=== PATIENT | male | born 2000 | race Hispanic/Latino ===

== ENCOUNTER 2021-05-01 11:35 | Emergency (ER) | payer BC, SELFPAY ==
[2021-05-01] VITALS (9 sets, daily range): BP systolic 122–133; BP diastolic 74–84; PULSE 65–92; RESP 12–19; TEMP 36.8; O2SAT 97–100
--- NOTE | ~2021-05-01 | XR_ITS ---
XR chest 2V DATE: 05/01/2021 12:07 INDICATION: Midsternal chest pain, discomfort TECHNIQUE: PA and lateral views COMPARISON: None FINDINGS: Normal heart size. No hilar or mediastinal enlargement. No pulmonary infiltrate or consolid ation, pleural effusion or pulmonary vascular congestion or pneumothorax. Included skeletal structures are unremarkable. IMPRESSION: No active cardiopulmonary disease Reviewed, dictated and finalized at location B. [employer]
--- NOTE | 2021-05-01 11:54 | ECG_ITS ---
Measurements Intervals Harvest Rate: 71 P: -42 ND: 144 QRS: 94 QRSD: 106 T: 42 QT: 357 QTc: 389 Interpretive Statements SINUS RHYTHM RIGHT AXIS DEVIATION INCOMPLETE RIGHT BUNDLE BRANCH BLOCK BORDERLINE ECG Electronically Signed On 05-01-2021 12:08:19 [employer] by Darrius Girard D.O.
--- NOTE | 2021-05-01 11:55 | PC.NURSE ---
Labs obtained and sent to lab for processing.
[2021-05-01 12:07] LABS: Basophils Absolute Auto 0.1 K/mm3 (0.0-0.1); Basophils Percent Auto 0.9 % (0.2-1.2); Eosinophils Percent Auto 0.3 % (0-4.4); Hematocrit 44.5 % (42.0-52.0); Immature Granulocyte Absolute 0.02 K/mm3 (0.00-0.031); Immature Granulocyte Percent A 0.3 % (0-0.5); Lymphocytes Absolute Auto 1.94 K/mm3 (0.9-3.2); Lymphocytes Percent Auto 33.7 % (18.3-44.2); Mean Corpuscular HGB Conc 33.7 g/dl (32-36); Mean Corpuscular Hemoglobin 29.3 pg (26-34); Mean Corpuscular Volume 86.9 fl (80-100); Mean Platelet Volume 10.8 fl (7.4-10.4); Monocytes Absolute Auto 0.6 K/mm3 (0.1-0.6); Monocytes Percent Auto 9.5 % (2.6-8.5); Neutrophils Absolute Auto 3.2 K/mm3 (1.3-6.7); Neutrophils Percent Auto 55.3 % (45.5-73.1); Platelet Count Result 203 k/mm3 (150-375); Red Blood Count 5.12 M/mm3 (4.6-6.20); Red Cell Distribution Width 12.8 % (11.5-14.5); White Blood Count 5.8 K/mm3 (4.5-10.0)
[2021-05-01 12:17] LABS: INR 1.1; Prothrombin Time 13.8 Seconds (11.1-14.7)
[2021-05-01 12:18] LABS: Partial Thromboplastin Time 30.3 SECONDS (22.3-36.8)
[2021-05-01 12:20] LABS: Alanine Aminotransferase 12 U/L (4-50); Albumin Level 4.7 g/dL (3.5-5.1); Alkaline Phosphatase 70 U/L (38-126); Anion Gap 10 mmol/L (8-16); Aspartate Amino Transferase 22 U/L (17-59); Bilirubin,Total 1.8 mg/dL (0.2-1.3); Blood Urea Nitrogen 11 mg/dL (9-20); Calcium 9.3 mg/dL (8.4-10.2); Carbon Dioxide 27 mmol/L (22-30); Chloride 102 mmol/L (98-107); Estimated CRCL calculation 96 ml/min; Estimated Glomerular Filt Rate > 60; Glucose 103 mg/dL (65-110); Lipase 44 U/L (23-300); Potassium 4.2 mmol/L (3.4-5.0); Sodium 139 mmol/L (137-145)
--- NOTE | 2021-05-01 12:27 | PC.NURSE ---
Dr. Jolly at bedside to see patient.
[2021-05-01 12:32] LABS: Troponin I < 0.012 ng/mL (0.000-0.034)
--- NOTE | 2021-05-01 12:34 | ED.CHESTPAIN ---
HPI - Chest Pain General Chief Complaint: Chest Pain Stated Complaint: chest pain/sob Time Seen by Provider: 05/01/21 12:11 Source: patient and RN notes reviewed Mode of arrival: ambulatory Limitations: no limitations History of Present Illness HPI narrative: 21-year-old male with no significant past medical history presents to the emergency department for evaluation of left-sided chest pain which he states has been intermittent over the last 3 days. Patient states he does have some exertional and shortness of breath at rest. Patient states he does have a left-sided chest pressure. Patient denies any radiation of this chest pain. Patient also does report fatigue. Related Data Home Medications Medication Instructions Recorded Confirmed No Home Medications 05/01/21 05/01/21 Allergies Allergy/AdvReac Type Severity Reaction Status Date / Time No Known Allergies Allergy Verified 05/01/21 11:48 Review of Systems Review of Systems: CONSTITUTIONAL: Denies fever, chills, or sweats. EYES: Denies visual changes, redness, or discharge. ENT: Denies rhinorrhea, congestion, sore throat, or otalgia. CARDIOVASCULAR: Denies chest pain, palpitations, or edema. RESPIRATORY: Denies cough or dyspnea. GASTROINTESTINAL: Denies abdominal pain, nausea, vomiting, or diarrhea. GENITOURINARY: Denies dysuria or hematuria. SKIN: Denies rash or itching. MUSCULOSKELETAL: Denies back pain, joint pain, or myalgia. NEUROLOGIC: Denies headache, numbness, or weakness. PSYCHIATRIC: Denies anxiety or depression. Exam Narrative: APPEARANCE: Well appearing, no pain, no distress, well-nourished. HEAD: normocephalic, atraumatic. EYES: PERRLA/EOMI, conjunctivae clear. NECK: Supple. No adenopathy, no masses. RESPIRATORY: Airway patent, respirations nonlabored. Clear to auscultation bilaterally, no rales, rhonchi, wheezing. CARDIOVASCULAR: Regular rate and rhythm without murmurs rubs or gallops. ABDOMINAL: Soft, nontender, nondistended, normal bowel sounds MUSCULOSKELETAL: Moves all extremities. Strength/ROM intact, No edema, No calf tenderness. NEURO: Alert. Cranial nerves II through XII intact. SKIN: Warm, dry. Normal Color PSYCHIATRIC: Normal affect/mood. Course Course Emergency Course: Patient had negative serial troponins. Patient's EKG showed normal sinus rhythm with no ST changes. Chest x-ray showed no acute cardiopulmonary normality. Patient was updated the results of his work-up. All questions concerns were addressed. Patient was stable at time of discharge from the emergency room. Vital Signs Vital signs: Vital Signs Temperature 98.2 F 05/01/21 11:42 Pulse Rate 74 05/01/21 11:42 Respiratory Rate 16 05/01/21 11:42 Blood Pressure 130/84 05/01/21 11:42 Pulse Oximetry 98 05/01/21 11:42 Temperature 98.2 F 05/01/21 11:42 Pulse Rate 92 05/01/21 15:24 Respiratory Rate 16 05/01/21 15:24 Blood Pressure 122/74 05/01/21 15:24 Pulse Oximetry 99 05/01/21 15:24 MDM - Chest Pain Lab Data Attestation: I reviewed the patient's lab results. Result diagrams: 05/01/21 11:56 05/01/21 11:56 Labs: Lab Results 05/01/21 05/01/21 05/01/21 Range/Units 11:56 11:56 11:56 WBC 5.8 (4.5-10.0) K/mm3 RBC 5.12 (4.6-6.20) M/mm3 Hgb 15.0 (14.0-18.0) g/dL Hct 44.5 (42.0-52.0) % MCV 86.9 (80-100) fl MCH 29.3 (26-34) pg MCHC 33.7 (32-36) g/dl RDW 12.8 (11.5-14.5) % Plt Count 203 (150-375) k/mm3 MPV 10.8 H (7.4-10.4) fl Immature Gran % (Auto) 0.3 (0-0.5) % Neut % (Auto) 55.3 (45.5-73.1) % Lymph % (Auto) 33.7 (18.3-44.2) % [place] % (Auto) 9.5 H (2.6-8.5) % Eos % (Auto) 0.3 (0-4.4) % Baso % (Auto) 0.9 (0.2-1.2) % Lymph # (Auto) 1.94 (0.9-3.2) K/mm3 [place] # (Auto) 0.6 (0.1-0.6) K/mm3 Eos # (Auto) 0.0 (0-0.3) K/mm3 Baso # (Auto) 0.1 (0.0-0.1) K/mm3 Abs Immat Gran (auto) 0.02 (0.00-0.031) K/mm3 Absolut
[2021-05-01 12:48] LABS: D Dimer 0.28 ug/mL (<0.48)
--- NOTE | 2021-05-01 13:35 | PC.NURSE ---
COVID swab obtained and sent to lab for processing.
[2021-05-01 15:08] LABS: Troponin I < 0.012 ng/mL (0.000-0.034)
[2021-05-01 15:44] LABS: SARS-CoV-2 RNA PCR Negative
== END 2021-05-01 15:26 | disposition home or self-care (01) ==
PROVIDERS: Emergency Medicine; Emergency Provider Emergency Medicine
DX: R07.9 Chest pain, unspecified (principal); Z20.822 Contact with and (suspected) exposure to COVID-19; I45.10 Unspecified right bundle-branch block
CPT/HCPCS: 36415; 71046; 80053; 83690; 84484; 85025; 85380; 85610; 85730; 93005; 99284; C9803; U0003; U0005